=== PATIENT | female | born 1985 | race Asian ===

== ENCOUNTER 2016-03-02 14:14 | Inpatient (IN) | payer BC ==
[~2016-03-02] VITALS: Ht 157.5 cm; Wt 61.8 kg
[~2016-03-02 14:14] MED LIST: CEPHALEXIN500 M1 PO; PRENATAL1 TA1 PO
[2016-04-12] VITALS (25 sets, daily range): BP systolic 91–130; BP diastolic 52–74; PULSE 75–95; TEMP 97.7–98.3
[2016-04-12] MEDS ORDERED: TAMIFLU 75MG75 MG PO (07:33)
[2016-04-12 07:51] LABS: BASO % 0.2 % (0.0-2.0); EOS # 0.1 (0.0-0.7); EOS % 0.8 % (0-4.0); GRAN # 7.8 (1.4-6.5); GRAN % 77.3 % (42.2-75.2); HEMOGLOBIN 12.5 g/dl (12.5-16.0); LYMPH # 1.5 (1.2-3.4); MEAN CELL VOLUME 93 fl (80.0-100.0); MEAN CORPUSCULAR HEMOGLOBIN 32 pg (27.0-31.0); MEAN CORPUSCULAR HGB CONC 34 g/dl (33.0-37.0); MEAN PLATELET VOLUME 10.3 fl (7.4-10.4); MONO # 0.6 (0.1-0.6); MONO % 5.9 % (1.7-9.3); PLATELET COUNT 191 K/mm3 (130-400); RED BLOOD COUNT 3.96 M/mm3 (4.10-5.30); REDCELL DISTRIBUTION WIDTH-CV 12.5 % (11.5-14.5)
[2016-04-12 07:56] LABS: HEMATOCRIT 36.8 % (37.0-47.0)
[2016-04-13 01:30] VITALS: BP 83/53; PULSE 75; TEMP 97.5
[2016-04-13 09:14] VITALS: BP 99/58; PULSE 94; TEMP 97.8
[2016-04-13 16:15] VITALS: BP 110/60; PULSE 85; TEMP 97.3
[2016-04-13 20:30] VITALS: BP 108/68; PULSE 83; TEMP 97.8
[2016-04-14] MEDS ORDERED: MOTRIN 600600 MG/TAB PO (08:39)
[2016-04-14 09:10] VITALS: BP 109/48; PULSE 91; TEMP 98
== END 2016-04-14 12:50 | disposition home or self-care (01) | DRG 775 ==
LOC: EDSTATUS 04-09 06:47 → LDRO 04-09 14:14 → LDR 04-12 05:51 → OB 04-12 15:05
PROVIDERS: Obstetrics & Gynecology
PROC: 10D07Z6 Extraction of Products of Conception, Vacuum, Via Natural or Artificial Opening (ICD-10-PCS; principal; 2016-04-12)
PROC: 0W8NXZZ Division of Female Perineum, External Approach (ICD-10-PCS; 2016-04-12)
DX: O48.0 Post-term pregnancy (principal); O76 Abnormality in fetal heart rate and rhythm complicating labor and delivery; O69.1XX0 Labor and delivery complicated by cord around neck, with compression, not applicable or unspecified; Z3A.40 40 weeks gestation of pregnancy; Z37.0 Single live birth
CPT/HCPCS: J2540; J2590; J7120

== ENCOUNTER 2016-04-11 07:30 | Outpatient (CLI) | payer BC ==
[~2016-04-11] VITALS: Ht 157.5 cm; Wt 63.2 kg
[2016-04-11 07:39] VITALS: BP 112/68; PULSE 93; TEMP 97.9
[2016-04-12] MEDS ORDERED: TAMIFLU 75MG75 MG PO (07:33)
== END 2016-04-11 09:00 | disposition home or self-care (01) ==
LOC: LDRO 07:30
DX: O47.1 False labor at or after 37 completed weeks of gestation (principal); Z3A.40 40 weeks gestation of pregnancy

== ENCOUNTER → 2016-11-29 | Outpatient (CLI) | payer BC ==
[~2016-11-29] MED LIST changes: +MOTRIN 600600 MG/TAB PO; +TAMIFLU 75MG75 MG PO
== END ==
LOC: COL.RAD 11-24 10:30
DX: R74.8 Abnormal levels of other serum enzymes (principal)

== ENCOUNTER → 2021-12-16 | Outpatient (CLI) | payer OTHER | LOC: COL.PUL 07:59 | DX: R06.02 Shortness of breath (principal) ==

== ENCOUNTER → 2022-04-05 | Outpatient (CLI) | payer OTHER | LOC: COL.RAD 09:45 | DX: R93.2 Abnormal findings on diagnostic imaging of liver and biliary tract (principal); R14.1 Gas pain; R14.2 Eructation; R14.3 Flatulence; R10.13 Epigastric pain ==